=== PATIENT | female | born 1965 | race Caucasian/White ===

== ENCOUNTER 2019-01-07 09:33 | Emergency (ER) | payer OTHER ==
[~2019-01-07] VITALS: Ht 182.9 cm; Wt 64.4 kg
[~2019-01-07 09:33] MED LIST: NOHOMEMEDICATIONS; TRAMADOL 50 MG50 MG PO
[2019-01-07] MEDS ORDERED: MEDROLDOSEPACK PO (10:38)
[2019-01-07] MEDS ORDERED: NORCO 5-325 TA1 EAC1 PO (10:38)
[2019-01-07] MEDS ORDERED: IBUPROFEN 800800 MG PO (10:38)
[2019-01-07 10:45] VITALS: BP 108/57
== END 2019-01-07 10:45 | disposition home or self-care (01) ==
LOC: M.ERS 09:33
DX: M54.5 Low back pain (principal); Z88.0 Allergy status to penicillin; Z88.1 Allergy status to other antibiotic agents; N80.9 Endometriosis, unspecified; Z90.710 Acquired absence of both cervix and uterus; Z87.01 Personal history of pneumonia (recurrent)

== ENCOUNTER 2020-01-19 15:33 | Emergency (ER) | payer OTHER ==
[~2020-01-19] VITALS: Ht 182.9 cm; Wt 68.0 kg
[~2020-01-19 15:33] MED LIST changes: +IBUPROFEN 800800 MG PO; +MEDROLDOSEPACK PO; +NORCO 5-325 TA1 EAC1 PO
[2020-01-19] MEDS ORDERED: PEPCID40 MG PO (15:44)
[2020-01-19 17:04] LABS: URINE BILIRUBIN NEGATIVE (Negative); URINE BLOOD 2+ (Negative); URINE CLARITY CLEAR; URINE COLOR YELLOW; URINE GLUCOSE-RANDOM NEGATIVE (Negative); URINE KETONES NEGATIVE (Negative); URINE LEUKOCYTES-REFLEX NEGATIVE (Negative); URINE NITRITE-REFLEX NEGATIVE (Negative); URINE PROTEIN NEGATIVE (Negative); URINE SPECIFIC GRAVITY 1.025 (1.005-1.030); URINE UROBILINOGEN 0.2 E.U./dl (0.2-1.0)
[2020-01-19 17:14] LABS: MUCUS 0-3 Light strn/LPF (None Seen); SQUAMOUS 4-10 Moderate /LPF (0-3)
[2020-01-19 17:15] LABS: BACTERIA-REFLEX None Seen /HPF (None Seen); CASTS None Seen /LPF (None Seen); CRYSTALS None Seen /LPF (None Seen); URINE RBC 3-10 Few /HPF (0-2); URINE WBC-REFLEX 0-5 Rare /HPF (0-5)
[2020-01-19 17:35] LABS: ABSOLUTE LYMPHOCYTES 0.9 thou/uL (0.8-5.3); ABSOLUTE MONOCYTES 0.6 thou/uL (0.0-1.2); BASOPHILS 1.1 %; EOSINOPHILS 0.1 %; HEMATOCRIT 41.5 % (37.0-47.0); HEMOGLOBIN 14.2 gm/dL (12.0-15.0); LYMPHOCYTES 24.8 %; MCHC 34.1 g/dL (28.0-37.0); MONOCYTES 17.7 %; MPV 8.1 fl. (7.2-11.1); NUCLEATED RBCS 0 /100WBC; PLATELET COUNT* 206 thou/uL (150-400); POLYS 56.3 %; RBC 4.57 mil/uL (4.20-5.00); RDW-CV 13.6 % (10.5-14.5); WBC 3.5 thou/uL (4.0-11.0)
[2020-01-19 17:47] LABS: CALCIUM 8.1 mg/dL (8.5-10.1); POTASSIUM 3.9 mmol/L (3.5-5.1)
[2020-01-19 17:52] LABS: ALBUMIN 3.7 g/dL (3.4-5.0); TOTAL BILIRUBIN 0.2 mg/dL (<0.1-1.0)
[2020-01-19] MEDS ORDERED: APAP W/CODEINE1 TA2 PO (18:52)
[2020-01-19] MEDS ORDERED: BACTRIM DS TAB1 EAC1 PO (18:52)
[2020-01-19] MEDS ORDERED: ONDANSETRON HCL4 M2 PO (18:52)
[2020-01-19 18:59] VITALS: BP 107/59
== END 2020-01-19 19:25 | disposition home or self-care (01) ==
LOC: M.ERS 15:33
PROVIDERS: Physician Assistant
DX: U07.1 COVID-19 (principal); R31.9 Hematuria, unspecified; R50.9 Fever, unspecified; F17.210 Nicotine dependence, cigarettes, uncomplicated; Z90.710 Acquired absence of both cervix and uterus; Z87.442 Personal history of urinary calculi; Z88.0 Allergy status to penicillin; Z88.1 Allergy status to other antibiotic agents

== ENCOUNTER 2020-01-22 01:16 | Emergency (ER) | payer OTHER ==
[~2020-01-22] VITALS: Ht 335.3 cm; Wt 68.0 kg
[~2020-01-22 01:16] MED LIST changes: +APAP W/CODEINE1 TA2 PO; +BACTRIM DS TAB1 EAC1 PO; +ONDANSETRON HCL4 M2 PO; +PEPCID40 MG PO
[2020-01-22 01:28] VITALS: BP 136/67
[2020-01-22] MEDS ORDERED: NORCO 5-325 TA1 EAC2 PO (01:36)
[2020-01-22] MEDS ORDERED: IBUPROFEN 800800 M1 PO (01:36)
[2020-01-22] MEDS ORDERED: FLEXERIL PO (01:36)
== END 2020-01-22 02:03 | disposition home or self-care (01) ==
LOC: M.ERS 01:16
DX: M54.5 Low back pain (principal); Z90.710 Acquired absence of both cervix and uterus; Z87.442 Personal history of urinary calculi; Z88.0 Allergy status to penicillin; Z88.8 Allergy status to other drugs, medicaments and biological substances

== ENCOUNTER 2020-01-27 12:04 | Inpatient (IN) | payer OTHER ==
[~2020-01-27] VITALS: Ht 185.4 cm; Wt 70.3 kg
[~2020-01-27 12:04] MED LIST changes: +FLEXERIL PO; +IBUPROFEN 800800 M1 PO; +NORCO 5-325 TA1 EAC2 PO
[2020-01-27 12:15] VITALS: BP 104/58
[2020-01-27 12:50] LABS: ABSOLUTE LYMPHOCYTES 2.4 thou/uL (0.8-5.3); ABSOLUTE MONOCYTES 0.7 thou/uL (0.0-1.2); ABSOLUTE NEUTROPHILS 4.3 thou/uL (1.6-8.1); BASOPHILS 0.3 %; EOSINOPHILS 0.2 %; HEMATOCRIT 42.9 % (37.0-47.0); HEMOGLOBIN 14.5 gm/dL (12.0-15.0); LYMPHOCYTES 32.5 %; MCH 30.6 pg (26.0-34.0); MCHC 33.9 g/dL (28.0-37.0); MCV 90.1 fL (80.0-100.0); MONOCYTES 9.4 %; MPV 8.7 fl. (7.2-11.1); NUCLEATED RBCS 0 /100WBC; PLATELET COUNT* 244 thou/uL (150-400); POLYS 57.6 %; RBC 4.76 mil/uL (4.20-5.00); RDW-CV 13.5 % (10.5-14.5); WBC 7.5 thou/uL (4.0-11.0)
[2020-01-27 13:03] LABS: CALCIUM 8.3 mg/dL (8.5-10.1); CREATININE 0.9 mg/dL (0.6-1.3); POTASSIUM 3.6 mmol/L (3.5-5.1)
[2020-01-27 13:09] LABS: ALBUMIN 3.7 g/dL (3.4-5.0); MAGNESIUM 2.1 mg/dL (1.8-2.4); TOTAL BILIRUBIN 0.3 mg/dL (<0.1-1.0); TOTAL PROTEIN 7.4 g/dL (6.4-8.2)
--- NOTE | 2020-01-27 16:07 | EKG ---
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
[2020-01-27 19:05] LABS: BE -1.8 mmol/L (-2 to +3); PCO2 28.1 mmHg (35.0-45.0); pH 7.479 (7.340-7.450)
[2020-01-27 19:21] LABS: CALCIUM 7.7 mg/dL (8.5-10.1); CREATININE 0.8 mg/dL (0.6-1.3); POTASSIUM 3.5 mmol/L (3.5-5.1)
[2020-01-27 19:59] VITALS: BP 123/70
[2020-01-27 20:30] VITALS: BP 121/70
[2020-01-28] VITALS: BP 114/77
[2020-01-28 04:00] VITALS: BP 98/61
[2020-01-28 04:58] LABS: HEMATOCRIT 36.8 % (37.0-47.0); HEMOGLOBIN 12.8 gm/dL (12.0-15.0); MCH 31.1 pg (26.0-34.0); MCHC 34.9 g/dL (28.0-37.0); MCV 89.3 fL (80.0-100.0); MPV 9.2 fl. (7.2-11.1); RBC 4.11 mil/uL (4.20-5.00); RDW-CV 13.6 % (10.5-14.5); WBC 6.1 thou/uL (4.0-11.0)
[2020-01-28 05:22] LABS: ALBUMIN 3.2 g/dL (3.4-5.0); CREATININE 0.8 mg/dL (0.6-1.3); POTASSIUM 4.5 mmol/L (3.5-5.1); TOTAL BILIRUBIN 0.2 mg/dL (<0.1-1.0); TOTAL PROTEIN 6.4 g/dL (6.4-8.2)
[2020-01-28 05:27] LABS: URINE BILIRUBIN NEGATIVE (Negative); URINE BLOOD NEGATIVE (Negative); URINE CLARITY CLEAR; URINE COLOR YELLOW; URINE GLUCOSE-RANDOM NEGATIVE (Negative); URINE KETONES NEGATIVE (Negative); URINE LEUKOCYTES-REFLEX NEGATIVE (Negative); URINE NITRITE-REFLEX NEGATIVE (Negative); URINE PROTEIN NEGATIVE (Negative); URINE SPECIFIC GRAVITY <= 1.005 (1.005-1.030); URINE UROBILINOGEN 0.2 E.U./dl (0.2-1.0)
[2020-01-28 08:00] VITALS: BP 102/60
[2020-01-28 12:15] LABS: CHOLESTEROL 171 mg/dL (<200); HDL CHOLESTEROL 50 mg/dL (>40); LDL CHOLESTEROL 100 mg/dL (<100); TC:HDL 3.4 Ratio (Not establshd); TRIGLYCERIDE 106 mg/dL (<150); VLDL 21 mg/dL (<40)
[2020-01-28 12:16] LABS: SERUM ASSESSMENT Clear
[2020-01-28 13:00] VITALS: BP 101/62
[2020-01-28 15:22] LABS: APTT 25.8 Seconds (25.0-31.3); INR 0.9; PROTIME 9.7 Seconds (9.20-11.50)
[2020-01-28 16:00] VITALS: BP 112/60
[2020-01-28 20:00] VITALS: BP 106/76
[2020-01-29 00:10] VITALS: BP 108/64
[2020-01-29 04:00] VITALS: BP 116/71
[2020-01-29 04:52] LABS: HEMATOCRIT 35.5 % (37.0-47.0); HEMOGLOBIN 12.2 gm/dL (12.0-15.0); MCH 30.5 pg (26.0-34.0); MCHC 34.3 g/dL (28.0-37.0); MCV 88.9 fL (80.0-100.0); MPV 8.8 fl. (7.2-11.1); NUCLEATED RBCS 0 /100WBC; PLATELET COUNT* 227 thou/uL (150-400); RBC 3.99 mil/uL (4.20-5.00); RDW-CV 13.3 % (10.5-14.5); WBC 9.1 thou/uL (4.0-11.0)
[2020-01-29 05:28] LABS: ALBUMIN 2.9 g/dL (3.4-5.0); CALCIUM 7.8 mg/dL (8.5-10.1); CREATININE 0.8 mg/dL (0.6-1.3); MAGNESIUM 2.1 mg/dL (1.8-2.4); POTASSIUM 4.1 mmol/L (3.5-5.1); TOTAL BILIRUBIN 0.1 mg/dL (<0.1-1.0)
[2020-01-29 07:15] LABS: ABSOLUTE LYMPHOCYTES 1.6 thou/uL (0.8-5.3); ABSOLUTE MONOCYTES 0.1 thou/uL (0.0-1.2); ABSOLUTE NEUTROPHILS 7.4 thou/uL (1.6-8.1); PLATELET ESTIMATE ADEQUATE
[2020-01-29 08:00] VITALS: BP 112/70
[2020-01-29 12:00] VITALS: BP 109/68
[2020-01-29 16:00] VITALS: BP 120/68
[2020-01-29 20:00] VITALS: BP 123/74
[2020-01-30] VITALS: BP 128/80
[2020-01-30 04:00] VITALS: BP 123/76
[2020-01-30 04:35] LABS: ABSOLUTE BASOPHILS 0.1 thou/uL (0.0-0.2); ABSOLUTE LYMPHOCYTES 0.9 thou/uL (0.8-5.3); ABSOLUTE MONOCYTES 0.4 thou/uL (0.0-1.2); ABSOLUTE NEUTROPHILS 10.1 thou/uL (1.6-8.1); BASOPHILS 0.5 %; HEMATOCRIT 36.3 % (37.0-47.0); HEMOGLOBIN 12.3 gm/dL (12.0-15.0); LYMPHOCYTES 8.2 %; MCH 30.4 pg (26.0-34.0); MCHC 33.9 g/dL (28.0-37.0); MCV 89.7 fL (80.0-100.0); MONOCYTES 3.6 %; MPV 8.8 fl. (7.2-11.1); NUCLEATED RBCS 0 /100WBC; PLATELET COUNT* 260 thou/uL (150-400); POLYS 87.7 %; RBC 4.05 mil/uL (4.20-5.00); RDW-CV 13.4 % (10.5-14.5); WBC 11.5 thou/uL (4.0-11.0)
[2020-01-30 05:20] LABS: CREATININE 0.7 mg/dL (0.6-1.3); MAGNESIUM 2.2 mg/dL (1.8-2.4); POTASSIUM 4.6 mmol/L (3.5-5.1)
[2020-01-30 08:10] VITALS: BP 123/76
[2020-01-30] MEDS ORDERED: ELIQUIS5 MG PO (09:01)
[2020-01-30] MEDS ORDERED: AZITHROMYCIN500 MG PO (09:01)
[2020-01-30] MEDS ORDERED: PREDNISONE 5 MG5 M1 PO (10:54)
[2020-01-30 12:00] VITALS: BP 114/59
[2020-01-30 16:00] VITALS: BP 109/62
[2020-01-30 20:00] VITALS: BP 130/79
--- NOTE | 2020-01-30 20:15 | CON ---
[address] [address] CONSULTATION Name: FLORIDALMASREEKANTH M Room: [address] M.R.#: [id number] Admission: 01/27/20 Attend Phys: Elvis Page Discharge: Date of : 67 Report #: [id number] THIS REPORT FOR: //name// cc: Elbert Mcguire Bradley L. DO ~ THIS REPORT FOR: //name// CC: Elbert Lopez DATE OF SERVICE: 01/28/2020 CONSULT REQUESTED BY: Young Lopez DO INDICATION FOR CONSULTATION: COVID-19 with pulmonary venous occlusion. HISTORY OF PRESENT ILLNESS: This is a 54-year-old female. She is an active smoker and is describing to me a history, which is consistent with COPD. The patient, however, has not been previously diagnosed with COPD. The patient is now admitted with left-sided chest pain with respiration and coughing. The patient has also had increasing shortness of breath. She was only recently diagnosed with COVID-19 and has had a fever as well as chills. She also reports having had a runny nose as well as a blocked nose and she also did have a sore throat. She states that her upper respiratory complaints are now subsiding, in fact was bringing up more sputum earlier and this is also better. However, the patient started having left-sided chest pain, which was fairly significant yesterday and also was more short of breath and presented with these complaints to the Emergency Room. She does not have swelling of lower extremities and does not have calf pain. She has had recent nausea, vomiting and diarrhea. The patient also reports recent headaches as well as loss of appetite and weakness. REVIEW OF SYSTEMS: The patient answered to the negative for 12 questions for review of systems except as mentioned above. PAST MEDICAL HISTORY: She reports recurrent episodes of respiratory tract infections which she describes as pneumonia and says that she has previously been exposed to mold, which she describes as high mold, hysterectomy, T/A when 15 years old, endometriosis, kidney stones. SOCIAL HISTORY: She is a smoker, half a pack a day, still smokes, has smoked more in the past, and has been smoking for several decades. No known history of heavy alcohol use or illegal drug use. CURRENT MEDICATIONS: List in [employer] reviewed. HOME MEDICATIONS: [place] [address] CONSULTATION Name: SREEKANTH HEDRICK Room: [address] [facility]#: [id number] Admission: 01/27/20 Attend Phys: Elvis Page Discharge: Date of : 67 Report #: [id number] FAMILY HISTORY: Mother also had a history of blood clots. ALLERGIES: SHE HAS HAD AN ADVERSE REACTION TO PENICILLIN. I do not have details available. She tolerates cephalosporins without any reaction. The patient has reported having had urinary tract infections or yeast infection with doxycycline. This is an adverse reaction, I do not feel that she has a true allergy to doxycycline. PHYSICAL EXAMINATION: GENERAL: She is alert, awake and oriented. She does appear to be mildly short of breath at rest and she did have a cough during my exam; however, she does not appear to be in any distress. VITAL SIGNS: She has a pulse of 61 and a blood pressure of 98/61. She is not on supplemental oxygen. Her respiratory rate is around 18. She is afebrile with a temperature of 36.6, T-max was 37.1. She is saturating 98%. HEENT: Head is normocephalic and atraumatic. NECK: Does not show raised JVP, asymmetry, mass or lymph nodes. CHEST: Symmetrical expansion on inspection and palpation. On auscultation, breath sounds are decreased, expirations are prolonged. Breath sounds are bilaterally equal. I do not hear any added sounds. HEART: Regular. There is no murmur. ABDOMEN: Soft and nontender. EXTREMITIES: Lower extremities show no edema. There is no calf tenderness. SKIN: Dry and intact. NEUROLOGICAL: Moves all extremities bilaterally equally and spontaneously. There is no focal deficit identified. PSYCHIATRIC: The patient has a normal mood. IMAGING AND LABORATORY DATA: The patient's CT chest is reviewed. I reviewed both the films as well as reports. I also called and talked to the radiologist. In summary, there is a small area of infiltrate and atelectasis at the left lung base. There are filling defects in the pulmonary venous vasculature, in particular in the left lower lobe, which are consistent with venous thrombus. The findings are over a fairly significant area. Lower extremity venous Dopplers are negative. The patient's COVID-19 antigen is positive. MRSA screen is pending. The patient's CBC as well as chemistries are in [facility] and these are reviewed. Coagulation studies showing a mild increase in D-dimer yesterday in [facility] reviewed. The patient received 1 dose of Lovenox overnight. The patient's arterial blood gas, which shows a respiratory alkalosis. ASSESSMENT AND PLAN: 1. COVID-19. The patient remains on daily dexamethasone at 4 mg. I recommend continuing steroids. I feel that she needs a high dose of steroid. We will order and follow. 2. Left lower lobe pulmonary venous thrombus. There appeared to be fairly [facility] [address] [place] [address] CONSULTATION Name: SREEKANTH HEDRICK Room: [address] .R.#: [id number] Admission: 01/27/20 Attend Phys: Elvis Page Discharge: Date of : 67 Report #: [id number] significant filling defects in the pulmonary venous vasculature. This is unusual as clots are more frequently found in the pulmonary arteries. COVID-19 is a hypercoagulable state and it appears likely to me that the patient has developed a hypercoagulable state secondary to COVID-19, which has led to this unusual finding. At this time, I would continue with full anticoagulation with Lovenox. I will plan to wait 1-2 days and then we will consider obtaining a repeat CTA chest to follow up on this finding. We would subsequently plan to change to oral anticoagulation and continue for 3 months, after which we will plan to repeat another CTA chest. The patient does have a family history of blood clots as well and therefore a hypercoagulability panel to assess for other etiologies of a hypercoagulable state is also ordered. 3. Bronchospasm. It appears likely to me that the patient has previously undiagnosed chronic obstructive pulmonary disease and I do feel that she is bronchospastic; therefore, I do favor giving her more steroids. She is on daily dexamethasone 4 mg. I went ahead and ordered 2 doses of Solu-Medrol. We will reassess tomorrow morning and then assess as to whether additional steroids are needed. As the patient is COVID-19 positive and currently not in a negative pressure room, I did not order nebulized bronchodilators, albuterol via inhaler is ordered instead. 4. Pulmonary infiltrate. There is a small infiltrate at the left lung base. Overall, my suspicion of methicillin-resistant Staphylococcus aureus is low. For now, I still did continue with vancomycin. The patient remains on Zithromax as well as ceftriaxone as well. If there are no positive cultures and methicillin-resistant Staphylococcus aureus swab is negative, then I will be inclined to discontinue vancomycin in the next 24-48 hours. 5. Atelectasis. Once the patient's chest pain improves, I would suggest incentive spirometry as well as early ambulation. 6. Chest pain with respiration. From a pulmonary point of view, recommend anticoagulation as above. I would defer evaluation of cardiac etiologies of chest pain if any to the Cardiology Service. Troponin I is noted to be negative 3 times. 7. Fluid and electrolytes. I recommend keeping the patient well hydrated. The patient already is on normal saline. I would continue the same as above. I would plan to give her more IV dye in the next day to 2. 8. Active smoker. Thanks for this consultation. <ELECTRONICALLY SIGNED> By: Charli Castaneda MD 01/30/202014 1235 1319Aradha Castaneda MD /nt
[2020-01-31 08:00] VITALS: BP 145/81
[2020-01-31 11:22] VITALS: BP 145/81
[2020-01-31 12:06] LABS: ANA INTERPRETATION Negative (Negative)
[2020-01-31] MEDS ORDERED: FLEXERIL PO (12:57)
== END 2020-01-31 13:25 | disposition home or self-care (01) | DRG 177 ==
LOC: M.ERS 12:04 → M.2W 16:41 → M.TBA-ER 16:41 → M.2W 20:52
PROVIDERS: Internal Medicine Critical Care Medicine; Nurse Practitioner Family; Registered Nurse; ADMIT Internal Medicine; ATTEND Internal Medicine
DX: U07.1 COVID-19 (principal); J12.89 Other viral pneumonia; I26.99 Other pulmonary embolism without acute cor pulmonale; E44.1 Mild protein-calorie malnutrition; D68.59 Other primary thrombophilia; J44.0 Chronic obstructive pulmonary disease with (acute) lower respiratory infection; I82.90 Acute embolism and thrombosis of unspecified vein; E78.5 Hyperlipidemia, unspecified; N80.9 Endometriosis, unspecified; F17.210 Nicotine dependence, cigarettes, uncomplicated; Z68.20 Body mass index [BMI] 20.0-20.9, adult; Z87.01 Personal history of pneumonia (recurrent); Z90.710 Acquired absence of both cervix and uterus; Z79.899 Other long term (current) drug therapy; Z88.1 Allergy status to other antibiotic agents; Z88.0 Allergy status to penicillin; Z87.442 Personal history of urinary calculi

== ENCOUNTER 2020-03-03 12:42 | Emergency (ER) | payer OTHER ==
[~2020-03-03] VITALS: Ht 182.9 cm; Wt 68.0 kg
[~2020-03-03 12:42] MED LIST changes: +AZITHROMYCIN500 MG PO; +ELIQUIS5 MG PO; +PREDNISONE 5 MG5 M1 PO
[2020-03-03 13:27] LABS: ABSOLUTE BASOPHILS 0.1 thou/uL (0.0-0.2); ABSOLUTE LYMPHOCYTES 2.6 thou/uL (0.8-5.3); ABSOLUTE MONOCYTES 0.7 thou/uL (0.0-1.2); ABSOLUTE NEUTROPHILS 3.3 thou/uL (1.6-8.1); BASOPHILS 1.4 %; EOSINOPHILS 0.6 %; HEMOGLOBIN 13.6 gm/dL (12.0-15.0); LYMPHOCYTES 38.3 %; MCH 31.5 pg (26.0-34.0); MCHC 34.9 g/dL (28.0-37.0); MCV 90.2 fL (80.0-100.0); MONOCYTES 9.8 %; MPV 7.9 fl. (7.2-11.1); NUCLEATED RBCS 0 /100WBC; PLATELET COUNT* 272 thou/uL (150-400); POLYS 49.9 %; RBC 4.33 mil/uL (4.20-5.00); RDW-CV 14.5 % (10.5-14.5); WBC 6.7 thou/uL (4.0-11.0)
[2020-03-03 13:42] LABS: CALCIUM 8.4 mg/dL (8.5-10.1); CREATININE 0.8 mg/dL (0.6-1.3); POTASSIUM 4.3 mmol/L (3.5-5.1)
[2020-03-03 13:44] LABS: APTT 28.4 Seconds (25.0-31.3); INR 0.9; PROTIME 9.4 Seconds (9.20-11.50)
[2020-03-03 13:56] LABS: ALBUMIN 3.4 g/dL (3.4-5.0); CK-MB MASS 1.3 ng/mL (<0.5-3.6); MAGNESIUM 2.1 mg/dL (1.8-2.4); TOTAL BILIRUBIN 0.3 mg/dL (<0.1-1.0); TOTAL PROTEIN 7.2 g/dL (6.4-8.2)
[2020-03-03 14:25] VITALS: BP 110/75
--- NOTE | 2020-03-03 15:53 | EKG ---
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
== END 2020-03-03 14:27 | disposition home or self-care (01) ==
LOC: M.ERS 12:42
PROVIDERS: Family Medicine
DX: R07.89 Other chest pain (principal); Z20.828 Contact with and (suspected) exposure to other viral communicable diseases; N80.9 Endometriosis, unspecified; Z88.0 Allergy status to penicillin; Z88.1 Allergy status to other antibiotic agents; Z87.01 Personal history of pneumonia (recurrent); Z87.442 Personal history of urinary calculi; Z90.710 Acquired absence of both cervix and uterus

== ENCOUNTER → 2020-05-16 | Outpatient (CLI) | payer OTHER ==
[2020-05-16 16:06] LABS: ABSOLUTE BASOPHILS 0.1 thou/uL (0.0-0.2); ABSOLUTE EOSINOPHILS 0.1 thou/uL (0.0-0.7); ABSOLUTE LYMPHOCYTES 2.9 thou/uL (0.8-5.3); ABSOLUTE MONOCYTES 0.7 thou/uL (0.0-1.2); ABSOLUTE NEUTROPHILS 4.7 thou/uL (1.6-8.1); BASOPHILS 0.6 %; EOSINOPHILS 0.7 %; HEMATOCRIT 42.4 % (37.0-47.0); HEMOGLOBIN 14.1 gm/dL (12.0-15.0); LYMPHOCYTES 34.7 %; MCH 30.3 pg (26.0-34.0); MCHC 33.3 g/dL (28.0-37.0); MCV 90.9 fL (80.0-100.0); MONOCYTES 7.9 %; MPV 7.7 fl. (7.2-11.1); NUCLEATED RBCS 0 /100WBC; PLATELET COUNT* 296 thou/uL (150-400); POLYS 56.1 %; RBC 4.67 mil/uL (4.20-5.00); RDW-CV 13.1 % (10.5-14.5); WBC 8.3 thou/uL (4.0-11.0)
[2020-05-16 16:15] LABS: CALCIUM 8.9 mg/dL (8.5-10.1); CREATININE 0.7 mg/dL (0.6-1.3); POTASSIUM 3.9 mmol/L (3.5-5.1)
== END ==
LOC: M.LAB 15:50
PROVIDERS: ATTEND Internal Medicine Critical Care Medicine
DX: I26.99 Other pulmonary embolism without acute cor pulmonale (principal); U07.1 COVID-19

== ENCOUNTER → 2020-05-25 | Outpatient (CLI) | payer OTHER | LOC: M.PUL 05-17 09:13 → M.CT 12:18 → M.PUL 12:30 → M.CT 13:00 | PROVIDERS: ATTEND Internal Medicine Critical Care Medicine | DX: J43.9 Emphysema, unspecified (principal); K76.0 Fatty (change of) liver, not elsewhere classified; I26.99 Other pulmonary embolism without acute cor pulmonale; U07.1 COVID-19 ==

== ENCOUNTER 2020-06-28 16:45 | Emergency (ER) | payer OTHER ==
[~2020-06-28] VITALS: Ht 182.9 cm; Wt 75.3 kg
[2020-06-28 18:01] LABS: ABSOLUTE BASOPHILS 0.1 thou/uL (0.0-0.2); ABSOLUTE EOSINOPHILS 0.1 thou/uL (0.0-0.7); ABSOLUTE LYMPHOCYTES 3.7 thou/uL (0.8-5.3); ABSOLUTE MONOCYTES 0.6 thou/uL (0.0-1.2); ABSOLUTE NEUTROPHILS 3.3 thou/uL (1.6-8.1); BASOPHILS 1.5 %; EOSINOPHILS 0.9 %; HEMOGLOBIN 13.8 gm/dL (12.0-15.0); LYMPHOCYTES 47.6 %; MCH 29.3 pg (26.0-34.0); MCHC 32.8 g/dL (28.0-37.0); MCV 89.3 fL (80.0-100.0); MONOCYTES 7.6 %; MPV 7.4 fl. (7.2-11.1); NUCLEATED RBCS 0 /100WBC; PLATELET COUNT* 291 thou/uL (150-400); POLYS 42.4 %; RBC 4.71 mil/uL (4.20-5.00); RDW-CV 13.4 % (10.5-14.5); WBC 7.8 thou/uL (4.0-11.0)
[2020-06-28 18:11] LABS: CALCIUM 8.8 mg/dL (8.5-10.1); CREATININE 0.8 mg/dL (0.6-1.3)
[2020-06-28 18:15] LABS: ALBUMIN 3.8 g/dL (3.4-5.0); TOTAL BILIRUBIN 0.2 mg/dL (<0.1-1.0); TOTAL PROTEIN 6.8 g/dL (6.4-8.2)
[2020-06-28 18:49] LABS: URINE BILIRUBIN NEGATIVE (Negative); URINE BLOOD TRACE (Negative); URINE CLARITY CLEAR; URINE COLOR YELLOW; URINE GLUCOSE-RANDOM NEGATIVE (Negative); URINE KETONES NEGATIVE (Negative); URINE LEUKOCYTES-REFLEX 1+ (Negative); URINE NITRITE-REFLEX NEGATIVE (Negative); URINE PROTEIN NEGATIVE (Negative); URINE UROBILINOGEN 0.2 E.U./dl (0.2-1.0)
[2020-06-28 18:57] LABS: BACTERIA-REFLEX 1-9 Few /HPF (None Seen); CASTS None Seen /LPF (None Seen); CRYSTALS None Seen /LPF (None Seen); SQUAMOUS 4-10 Moderate /LPF (0-3); URINE RBC None Seen /HPF (0-2); URINE WBC-REFLEX 0-5 Rare /HPF (0-5)
[2020-06-28 22:09] VITALS: BP 128/75
--- NOTE | 2020-06-29 11:18 | EKG ---
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: : 1965 Requested By: Renzo Madrid Order Number: [id number] MD: Elmer Gutierrez Measurements Intervals [place] Rate: 73 P: 77 OK: 211 QRS: 81 QRSD: 86 T: 62 QT: 403 QTc: 444 Interpretive Statements Sinus rhythm Prolonged OK interval Compared to ECG 03/03/2020 12:53:17 First degree AV block now present Electronically Signed On 06-29-2020 11:18:52 WATER FILTERER HELPER by Elmer Gutierrez [email or web address] <ELECTRONICALLY SIGNED> By: Elmer Gutierrez MD, FAC 06/29/20 1118 1751 1751 Elmer Gutierrez MD, [facility] /EPI
== END 2020-06-28 22:10 | disposition home or self-care (01) ==
LOC: M.ERS 16:45
PROVIDERS: Emergency Medicine Emergency Medical Services
DX: R51.9 Headache, unspecified (principal); R07.89 Other chest pain; N80.9 Endometriosis, unspecified; Z88.0 Allergy status to penicillin; Z88.1 Allergy status to other antibiotic agents; Z87.442 Personal history of urinary calculi; Z90.710 Acquired absence of both cervix and uterus

== ENCOUNTER → 2020-07-07 | Outpatient (CLI) | payer OTHER | LOC: M.LAB 12:58 | PROVIDERS: ATTEND Internal Medicine Critical Care Medicine | DX: I26.99 Other pulmonary embolism without acute cor pulmonale (principal) ==

== ENCOUNTER 2021-02-01 11:02 | Emergency (ER) | payer OTHER ==
[~2021-02-01] VITALS: Ht 182.9 cm; Wt 69.0 kg
[2021-02-01 12:52] LABS: ABSOLUTE LYMPHOCYTES 0.9 thou/uL (0.8-5.3); ABSOLUTE MONOCYTES 0.8 thou/uL (0.0-1.2); ABSOLUTE NEUTROPHILS 6.3 thou/uL (1.6-8.1); BASOPHILS 0.5 %; EOSINOPHILS 0.1 %; HEMATOCRIT 46.2 % (37.0-47.0); HEMOGLOBIN 15.3 gm/dL (12.0-15.0); LYMPHOCYTES 10.8 %; MCH 29.7 pg (26.0-34.0); MCHC 33.2 g/dL (28.0-37.0); MCV 89.5 fL (80.0-100.0); MPV 7.8 fl. (7.2-11.1); NUCLEATED RBCS 0 /100WBC; PLATELET COUNT* 264 thou/uL (150-400); POLYS 78.6 %; RBC 5.17 mil/uL (4.20-5.00); RDW-CV 14.1 % (10.5-14.5)
[2021-02-01 12:59] LABS: CALCIUM 9.1 mg/dL (8.5-10.1); CREATININE 0.9 mg/dL (0.6-1.3); POTASSIUM 4.7 mmol/L (3.5-5.1)
[2021-02-01 13:04] LABS: ALBUMIN 4.3 g/dL (3.4-5.0); TOTAL BILIRUBIN 0.3 mg/dL (<0.1-1.0); TOTAL PROTEIN 8.2 g/dL (6.4-8.2)
[2021-02-01 13:45] LABS: URINE BILIRUBIN NEGATIVE (Negative); URINE BLOOD 2+ (Negative); URINE CLARITY CLEAR; URINE COLOR YELLOW; URINE GLUCOSE-RANDOM NEGATIVE (Negative); URINE KETONES NEGATIVE (Negative); URINE LEUKOCYTES-REFLEX NEGATIVE (Negative); URINE NITRITE-REFLEX NEGATIVE (Negative); URINE PROTEIN NEGATIVE (Negative); URINE SPECIFIC GRAVITY >= 1.030 (1.005-1.030); URINE UROBILINOGEN 0.2 E.U./dl (0.2-1.0)
[2021-02-01 13:49] LABS: BACTERIA-REFLEX 1-9 Few /HPF (None Seen); CASTS None Seen /LPF (None Seen); SQUAMOUS 0-3 Few /LPF (0-3); URINE RBC 3-10 Few /HPF (0-2); URINE WBC-REFLEX 0-5 Rare /HPF (0-5)
[2021-02-01 13:50] LABS: CRYSTALS None Seen /LPF (None Seen)
[2021-02-01] MEDS ORDERED: PREDNISONE 20 M20 MG PO (14:57)
[2021-02-01] MEDS ORDERED: PROAIR HFA8.5 GM INH (14:58)
[2021-02-01 15:24] VITALS: BP 115/70
--- NOTE | 2021-02-01 16:26 | EKG ---
[place] [address] ELECTROCARDIOGRAM REPORT Name: SREEKANTH HEDRICK [id number] Admission: 02/01/21 Attend Phys: Discharge: 02/01/21 Date of : 67 Date of Service: 02/01/21 1248 Report #: [id number] THIS REPORT FOR: //name// 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1965 Requested By: Pooja Medina Order Number: [id number] MD: Rod Doyle Measurements Intervals [place] Rate: 103 P: 68 MS: 170 QRS: 91 QRSD: 77 T: 64 QT: 328 QTc: 430 Interpretive Statements Sinus tachycardia LAE, consider biatrial enlargement Borderline right axis deviation Compared to ECG 06/28/2020 17:51:36 Sinus rate has increased First degree AV block no longer present Electronically Signed On 02-01-2021 16:26:18 CDT by Rod Doyle [email or web address] <ELECTRONICALLY SIGNED> By: Rod Doyle MD, [facility] 02/01/21 1626 1248 1248 Rod Doyle MD, [facility] /EPI
== END 2021-02-01 15:24 | disposition home or self-care (01) ==
LOC: M.ERS 11:02
PROVIDERS: Physician Assistant
DX: J44.1 Chronic obstructive pulmonary disease with (acute) exacerbation (principal); Z20.822 Contact with and (suspected) exposure to COVID-19; R41.0 Disorientation, unspecified; Z90.711 Acquired absence of uterus with remaining cervical stump; Z87.442 Personal history of urinary calculi; Z79.899 Other long term (current) drug therapy; Z88.0 Allergy status to penicillin; Z88.1 Allergy status to other antibiotic agents